=== PATIENT | male | born 1960 | race Caucasian/White ===

== ENCOUNTER 2017-04-16 04:55 | Emergency (ER) | payer OTHER ==
[~2017-04-16] VITALS: Ht 172.7 cm; Wt 76.2 kg
[2017-04-16 05:03] VITALS: BP 138/99
--- NOTE | 2017-04-16 05:10 | NUR ---
PT IS 56/M BIB PRESENTS TO ED WITH ABD PAIN STARTED YESTERDAY . PT STATES MED HX OF HTN, GASTRITIS . DENIES N/V/D; SKIN IS PINK/WARM/DRY; AAOX4 WITH EVEN AND STEADY GAIT; LUNGS CLEAR BL; HR EVEN AND REGULAR; PT DENIES ANY FEVER, CP, SOB, OR COUGH AT THIS TIME; PATIENT STATES PAIN OF 6/10 AT THIS TIME; VSS; PATIENT POSITIONED FOR COMFORT; HOB ELEVATED; BEDRAILS UP X2; BED DOWN. ER MD MADE AWARE OF PT STATUS.
--- NOTE | 2017-04-16 05:47 | NUR ---
PT HAVING KUB DONE AT BEDSIDE
--- NOTE | 2017-04-16 06:15 | NUR ---
PT TAKEN OFF UNIT TO HAVE CT DONE VIA WHEELCHAIR
--- NOTE | 2017-04-16 06:23 | NUR ---
PT BACK ON UNIT FROM CT
--- NOTE | 2017-04-16 06:56 | NUR ---
Patient discharged with v/s stable. Written and verbal after care instructions given and explained. Patient alert, oriented and verbalized understanding of instructions. Ambulatory with steady gait. All questions addressed prior to discharge. ID band removed. Patient advised to follow up with PMD. Rx of [facility] MILK OF MAGNESIA given. Patient educated on indication of medication including possible reaction and side effects. Opportunity to ask questions provided and answered.
[2017-04-16 06:57] VITALS: BP 131/96
[2017-04-16 07:00] LABS: BASOPHILS # (AUTO) 0.2 K/uL (0.00-0.22); BASOPHILS % (AUTO) 3.4 % (0.0-2.0); EOSINOPHILS # (AUTO) 0.1 K/uL (0-0.4); EOSINOPHILS % (AUTO) 1.5 % (0.0-4.0); HEMATOCRIT 41.7 % (36-52); HEMOGLOBIN 13.5 g/dL (12.0-18.0); LYMPHOCYTES # (AUTO) 2.8 K/uL (2.0-11.5); LYMPHOCYTES % (AUTO) 39.2 % (20.5-51.1); MEAN CORPUSCULAR HEMOGLOBIN 27 pg (27-31); MEAN CORPUSCULAR HGB CONC 32 g/dL (33-37); MEAN CORPUSCULAR VOLUME 83 fL (80-94); MONOCYTES # (AUTO) 0.6 K/uL (0.8-1.0); NEUTROPHILS # (AUTO) 3.5 K/uL (1.8-7.7); NEUTROPHILS % (AUTO) 47.9 % (42.2-75.2); PLATELET COUNT (AUTO) 292 K/uL (140-450); RED BLOOD CELL COUNT(AUTO) 5.01 MIL/uL (4.20-6.10); RED CELL DISTRIBUTION WIDTH 12.9 % (11.6-13.7); WHITE BLOOD COUNT (AUTO) 7.2 K/uL (4.8-10.8)
[2017-04-16 07:34] LABS: ALBUMIN 3.7 g/dL (3.4-5.0); CALCIUM 8.8 mg/dL (8.5-10.1); CREATININE 0.8 mg/dL (0.7-1.3); TOTAL BILIRUBIN 0.6 mg/dL (0.0-1.0); TOTAL PROTEIN, SERUM 7.4 g/dL (6.4-8.2)
== END 2017-04-16 06:55 | disposition home or self-care (01) ==
LOC: MED 04:55
DX: K59.00 Constipation, unspecified (principal)
CPT/HCPCS: 36415; 74000; 74176; 80053; 81002; 82150; 83690; 85025; 99285; Q0092

== ENCOUNTER 2018-02-11 14:49 | Emergency (ER) | payer BC, OTHER ==
[~2018-02-11] VITALS: Ht 172.7 cm; Wt 81.6 kg
[~2018-02-11 14:49] MED LIST: LOSA50TA39 PO
[2018-02-11 14:55] VITALS: BP 142/85
--- NOTE | 2018-02-11 15:00 | NUR ---
PT BACK TO LOBBY
--- NOTE | 2018-02-11 15:49 | NUR ---
PATIENT AMBULATED TO ER BED 12
--- NOTE | 2018-02-11 16:00 | NUR ---
57m bib self with c/o 6/10 right knee pain s/p fall at work x 12 days. Patient denies any LOC. Patient states he tripped and fall onto his right knee to stop the fall. Swelling to right knee. CMS intact to bl lower extremities. Limited ROM to right knee. Patient is aox4. GCS=15. RR are even and unlabored. No acute distress noted. Awaiting er md ha. Will continue to monitor.
[2018-02-11] MEDS ORDERED: KETOROLAC 60 MG/2 ML VIAL IM ONE (17:00)
--- NOTE | 2018-02-11 18:10 | NUR ---
XRAY BY BEDSIDE
[2018-02-11 19:14] VITALS: BP 142/85
== END 2018-02-11 19:15 | disposition home or self-care (01) ==
LOC: MED 14:49
DX: S83.91XA Sprain of unspecified site of right knee, initial encounter (principal); I10 Essential (primary) hypertension; Z79.899 Other long term (current) drug therapy; W01.0XXA Fall on same level from slipping, tripping and stumbling without subsequent striking against object, initial encounter; Y93.89 Activity, other specified; Y92.89 Other specified places as the place of occurrence of the external cause; Y99.8 Other external cause status
CPT/HCPCS: 29105; 73564; 96372; 99284; J1885; Q0092

== ENCOUNTER 2021-01-14 08:40 | Emergency (ER) | payer BC ==
[~2021-01-14] VITALS: Ht 170.2 cm; Wt 84.9 kg
[~2021-01-14 08:40] MED LIST changes: -LOSA50TA39 PO; +LOSA50TA66 PO
[2021-01-14 08:42] VITALS: BP 178/95
--- NOTE | 2021-01-14 08:51 | NUR ---
PT AMBULATED TO BED 07.
--- NOTE | 2021-01-14 08:54 | NUR ---
60 Y/O MALE C/O LUQ ABDOMINAL PAIN X 2 DAYS. PT RATES PAIN 5/10 THAT IS NONRADIATING AND FEELS PRESSURE/STABBING PAIN. PT DENIES TAKING ANYTHING FOR PAIN. PT STATES PAIN WAS SO BAD LAST NIGHT HE COULDNT SLEEP. PT DRANK ORANGE, APPLE, AND CARROT JUICE AND SPICY CHICKEN YESTERDAY AND THEN THE PAIN STARTED AFTER. ABD IS FLAT, SOFT, AND NONTENDER WITH ACTIVE BOWEL SOUNDS X4 QUAD. LBM TODAY AND WAS NORMAL FOR PT. PT DENIES N/V/D/FEVER/SOB. PT STATES HE HAD H PYLORI X3 YEARS AGO AND PAIN IS SIMILAR. PT IS A/O X4 WITH EVEN AND UNLABORED RESPIRATIONS. PT LAYING IN BED WITH BED IN LOWEST POSITION, BRAKES LOCKED, X1 SIDERAIL UP. PMH: GASTRITIS, HTN H.PYLORI X3 YEARS AGO NKA
--- NOTE | 2021-01-14 09:05 | NUR ---
DR DE LEON AT BEDSIDE
--- NOTE | 2021-01-14 09:12 | NUR ---
LAB AT BEDSIDE. URINE SAMPLE GIVEN TO MICKIE OLIVEROS TECH
[2021-01-14] MEDS ORDERED: DICYCLOMINE HCL LIQUID 20 MG, ALUMINUM HYD/MAG/SIMETHICONE 30 ML, LIDOCAINE VISCOUS 2% ... PO ONE ×3 (09:20)
[2021-01-14] MEDS ORDERED: FAMOTIDINE 20 MG TAB PO ONE (09:20)
[2021-01-14 09:21] LABS: BASOPHILS % (AUTO) 0.4 % (0.0-2.0); EOSINOPHILS # (AUTO) 0.1 K/uL (0-0.4); EOSINOPHILS % (AUTO) 0.9 % (0.0-4.0); HEMATOCRIT 40.1 % (36-52); HEMOGLOBIN 13.3 g/dL (12.0-18.0); LYMPHOCYTES # (AUTO) 2.3 K/uL (2.0-11.5); LYMPHOCYTES % (AUTO) 36.3 % (20.5-51.1); MEAN CORPUSCULAR HEMOGLOBIN 28 pg (27-31); MEAN CORPUSCULAR HGB CONC 33 g/dL (33-37); MEAN CORPUSCULAR VOLUME 83.4 fL (80-94); MONOCYTES # (AUTO) 0.4 K/uL (0.8-1.0); MONOCYTES % (AUTO) 7.1 % (1.7-9.3); NEUTROPHILS # (AUTO) 3.5 K/uL (1.8-7.7); NEUTROPHILS % (AUTO) 55.3 % (42.2-75.2); PLATELET COUNT (AUTO) 279 K/uL (140-450); RED BLOOD CELL COUNT(AUTO) 4.81 MIL/uL (4.20-6.10); RED CELL DISTRIBUTION WIDTH 13.2 % (11.6-13.7); WHITE BLOOD COUNT (AUTO) 6.3 K/uL (4.8-10.8)
[2021-01-14] MEDS ORDERED: LIDOCAINE VISCOUS 2% 20 ML UDC ONE (09:24)
[2021-01-14 09:25] LABS: APPEARANCE,URINE CLEAR (CLEAR); BILIRUBIN,URINE NEGATIVE (NEGATIVE); BLOOD, URINE 1+ (NEGATIVE); COLOR,URINE YELLOW (YELLOW); LEUKOCYTE ESTERASE ,URINE NEGATIVE (NEGATIVE); NITRITE, URINE NEGATIVE (NEGATIVE); UGLUCOSE NEGATIVE (NEGATIVE)
[2021-01-14] MEDS ORDERED: ALUMINUM HYD/MAG/SIMETHICONE 30 ML UDC ONE (09:25)
[2021-01-14] MEDS ORDERED: DICYCLOMINE HCL LIQUID 10 MG/5 ML UDC ONE (09:25)
[2021-01-14 09:32] LABS: ALBUMIN 3.8 g/dL (3.4-5.0); ANION GAP 12.7 (8-16); CARBON DIOXIDE 26.8 mmol/L (21-32); POTASSIUM 3.5 mmol/L (3.5-5.1); TOTAL BILIRUBIN 0.4 mg/dL (0.0-1.0)
[2021-01-14 09:42] LABS: RBC,URINE 0-5 /HPF (0-5); WBC,URINE 0-5 /HPF (0-5)
[2021-01-14 10:34] VITALS: BP 178/95
--- NOTE | 2021-01-14 10:35 | NUR ---
Patient discharged with v/s stable. Written and verbal after care instructions given and explained. Patient verbalized understanding. Ambulatory with steady gait. All questions addressed prior to discharge. Advised to follow up with PMD.
== END 2021-01-14 10:35 | disposition home or self-care (01) ==
LOC: MED 08:40
DX: R10.13 Epigastric pain (principal); M79.10 Myalgia, unspecified site
CPT/HCPCS: 36415; 80053; 81001; 82150; 83690; 84484; 85025; 93005; 99284

== ENCOUNTER 2021-12-15 18:05 | Emergency (ER) | payer BC ==
[~2021-12-15] VITALS: Ht 175.3 cm; Wt 90.7 kg
[2021-12-15 18:35] VITALS: BP 177/103
[2021-12-15] MEDS ORDERED: ACET-10509 PO (19:27)
[2021-12-15 19:43] VITALS: BP 177/103
== END 2021-12-15 19:44 | disposition home or self-care (01) ==
LOC: MED 18:05
DX: S93.401A Sprain of unspecified ligament of right ankle, initial encounter (principal); I10 Essential (primary) hypertension; Z79.899 Other long term (current) drug therapy; W07.XXXA Fall from chair, initial encounter; Y93.89 Activity, other specified; Y92.89 Other specified places as the place of occurrence of the external cause; Y99.8 Other external cause status
CPT/HCPCS: 73590; 73610; 99284

== ENCOUNTER 2022-06-27 10:14 | Emergency (ER) | payer BC ==
[~2022-06-27] VITALS: Ht 172.7 cm; Wt 85.7 kg
[~2022-06-27 10:14] MED LIST changes: +ACET-10509 PO
[2022-06-27 10:29] VITALS: BP 148/94
--- NOTE | 2022-06-27 10:36 | NUR ---
61/M WALKED IN C/O SORETHROAT ONSET 3.5 WKS AGO. AFEBRILE AT BEDSIDE. ALSO C/O MID BACK PAIN ONSET YESTERDAY. AAOX4, VITALS STABLE. PMH: HTN.
[2022-06-27] MEDS ORDERED: ACETAMINOPHEN EXTRA STRENGTH 500 MG TAB PO ONE (11:00)
--- NOTE | 2022-06-27 11:17 | NUR ---
BLOOD DRAWN BY SUPERVISOR RESIDENTIAL
--- NOTE | 2022-06-27 11:21 | NUR ---
XR AT BEDSIDE
[2022-06-27 11:29] LABS: BASOPHILS % (AUTO) 0.4 % (0.0-2.0); EOSINOPHILS # (AUTO) 0.1 K/uL (0-0.4); EOSINOPHILS % (AUTO) 2.2 % (0.0-4.0); HEMATOCRIT 40.3 % (36-52); HEMOGLOBIN 13.5 g/dL (12.0-18.0); LYMPHOCYTES # (AUTO) 2.6 K/uL (2.0-11.5); LYMPHOCYTES % (AUTO) 46.6 % (20.5-51.1); MEAN CORPUSCULAR HEMOGLOBIN 28 pg (27-31); MEAN CORPUSCULAR HGB CONC 34 g/dL (33-37); MONOCYTES # (AUTO) 0.6 K/uL (0.8-1.0); NEUTROPHILS # (AUTO) 2.3 K/uL (1.8-7.7); NEUTROPHILS % (AUTO) 40.8 % (42.2-75.2); PLATELET COUNT (AUTO) 262 K/uL (140-450); RED BLOOD CELL COUNT(AUTO) 4.92 MIL/uL (4.20-6.10); RED CELL DISTRIBUTION WIDTH 13.1 % (11.6-13.7); WHITE BLOOD COUNT (AUTO) 5.6 K/uL (4.8-10.8)
[2022-06-27 11:48] LABS: ANION GAP 10.3 (8-16); CARBON DIOXIDE 28.4 mmol/L (21-32); CREATININE 0.9 mg/dL (0.6-1.3); POTASSIUM 3.7 mmol/L (3.5-5.1)
[2022-06-27] MEDS ORDERED: ACET-10509 PO (12:51)
[2022-06-27 13:32] VITALS: BP 133/74
== END 2022-06-27 13:33 | disposition home or self-care (01) ==
LOC: MED 10:14
DX: J02.9 Acute pharyngitis, unspecified (principal); R06.00 Dyspnea, unspecified; I10 Essential (primary) hypertension; Z79.899 Other long term (current) drug therapy
CPT/HCPCS: 36415; 71045; 80048; 85025; 99284; Q0092

== ENCOUNTER 2023-03-20 21:46 | Emergency (ER) | payer BC ==
[~2023-03-20] VITALS: Ht 172.7 cm; Wt 87.5 kg
[2023-03-20 22:27] VITALS: BP 163/90
--- NOTE | 2023-03-20 22:30 | NUR ---
SETH SOLIS A/W BED AMBULATORY
--- NOTE | 2023-03-20 23:40 | NUR ---
Patient resting in bed, A/Ox4, chest rise and fall symmetrical, no s/s of distress, on monitor.
--- NOTE | 2023-03-20 23:44 | NUR ---
PT TO BED #3
--- NOTE | 2023-03-20 23:51 | NUR ---
Note chante in [facility] - 03/20/23 at 2359 by [id number] Patient stated "I gave my my medication for arthritis because he was having pain in his arm." Patient's gave him Indomethacin 50 mg tab. Patient stated after taking the medication, he "started having rashes." Addendum: 03/20/23 at 2355 by [id number] Amendment chante in [facility] - 03/20/23 at 2359 by [id number] Patient stated "I gave my my medication for arthritis because he was having pain in his arm." Patient's gave him Indomethacin 50 mg tab. Patient stated after taking the medication for 3 days, total of 5 tablets, he "started having rashes."
--- NOTE | 2023-03-20 23:52 | NUR ---
Patient stated "I gave my my medication for arthritis because he was having pain in his arm." Patient's gave him Indomethacin 50 mg tab. Patient stated after taking the medication for 3 days, total of 5 tablets, he "started having rashes." Patient educated on risks of taking medication prescribed to other people. Patient verbalized understanding ofeducation, teach back confirmed. Addendum: 03/21/23 at 0004 by [id number] Patient stated "I gave my my medication for arthritis because he was having pain in his arm." Patient's gave him Indomethacin 50 mg tab. Patient stated after taking the medication for 3 days, total of 5 tablets, he "started having rashes." Patient educated on risks of taking medication prescribed to other people. Patient verbalized understanding ofeducation, teach back confirmed. Dr. Longo verbally informed of patient taking his 's prescription medication. Dr. Longo verbalized understanding.
[2023-03-20] MEDS ORDERED: IRBE300T26 PO (23:57)
--- NOTE | 2023-03-21 00:58 | NUR ---
Dr. Longo at bedside assessing patient.
[2023-03-21] MEDS ORDERED: KETOROLAC 30 MG/ML VIAL IM ONE (01:00)
[2023-03-21] MEDS ORDERED: HYDROcodone/APAP 5/325 MG 1 TAB TAB PO ONE (01:00)
[2023-03-21] MEDS ORDERED: ACET-8905 PO (01:07)
[2023-03-21] MEDS ORDERED: NAPR-1717 PO (01:07)
[2023-03-21] MEDS ORDERED: VALA1TAB40 PO (01:07)
[2023-03-21 01:40] VITALS: BP 153/85
--- NOTE | 2023-03-21 01:42 | NUR ---
Note chante in [facility] - 03/21/23 at 0152 by [id number] Patient discharged with v/s stable. Written and verbal after care instructions given and explained. Patient alert, oriented and verbalized understanding of instructions. Ambulatory with steady gait. All questions addressed prior to discharge. ID band removed. Patient advised to follow up with PMD. Rx given to patient. Patient educated on indication of medication including possible reaction and side effects. Opportunity to ask questions provided and answered.
== END 2023-03-21 01:40 | disposition home or self-care (01) ==
LOC: MED 21:46
DX: B02.9 Zoster without complications (principal); R21 Rash and other nonspecific skin eruption; I10 Essential (primary) hypertension; Z79.899 Other long term (current) drug therapy; Z79.1 Long term (current) use of non-steroidal anti-inflammatories (NSAID)
CPT/HCPCS: 96372; 99283; J1885